=== PATIENT | female | born 1975 | race Caucasian/White ===

== ENCOUNTER → 2017-11-12 | Outpatient (CLI) | payer BC ==
[2017-11-12 12:33] LABS: Basophils # (A) 0.1 k/uL (0-0.2); Basophils % (A) 1 %; Eosinophils # (A) 0.2 k/uL (0-0.7); Eosinophils % (A) 3 %; HCT 45.1 % (34.0-46.0); HGB 14.3 gm/dL (11.4-16.0); Lymphocytes # (A) 2.5 k/uL (1.0-4.8); Lymphocytes % (A) 31 %; MCH 29.2 pg (25.0-35.0); MCHC 31.7 g/dL (31.0-37.0); MCV 92.1 fL (80.0-100.0); Mean Platelet Volume 7.9; Monocytes # (A) 0.3 k/uL (0-1.0); Monocytes % (A) 4 %; Neutrophils # (A) 4.8 k/uL (1.3-7.7); Neutrophils % (A) 59 %; Platelet Count 322 k/uL (150-450); RBC 4.89 m/uL (3.80-5.40); RDW 13.6 % (11.5-15.5); WBC 8.1 k/uL (3.8-10.6)
[2017-11-12 12:54] LABS: Anion Gap 10 mmol/L; Blood Urea Nitrogen 12 mg/dL (7-17); Carbon Dioxide 25 mmol/L (22-30); Chloride 104 mmol/L (98-107); Glucose 90 mg/dL (74-99); Potassium 4.6 mmol/L (3.5-5.1); Sodium 139 mmol/L (137-145)
== END | disposition home or self-care (01) ==
LOC: LABPAT 11:44
PROVIDERS: ATTEND Obstetrics & Gynecology
DX: Z01.812 Encounter for preprocedural laboratory examination (principal); N92.0 Excessive and frequent menstruation with regular cycle; D21.9 Benign neoplasm of connective and other soft tissue, unspecified
CPT/HCPCS: 36415; 80051; 82565; 82947; 84520; 85025; 86850; 86900; 86901; 87086

== ENCOUNTER 2017-11-20 06:00 | Day surgery (SDC) | payer BC, OTHER ==
[2017-11-12 09:27] VITALS: BMI 34.5
--- NOTE | 2017-11-19 12:50 | HP ---
HISTORY AND PHYSICAL Surgery on 11/20/2017. HISTORY OF PRESENT ILLNESS: The patient is a 42-year-old 1, para 1-0-0-1, who presented on referral for evaluation for menorrhagia. She had significantly heavy bleeding, which remains on a monthly basis, but is lasting 7 days. She has had anemia in the past and continues to be iron deficient as result of her bleeding. She is interested in options for controlling the bleeding. She is a smoker and is not using any contraception consistently. She ultimately underwent a pelvic ultrasound which demonstrated a slightly enlarged uterus with one fibroid noted. Her physical exam was consistent with those findings as well. Additionally, endometrial biopsy performed was normal. After discussion of all of the potential options, the patient has requested definitive therapy with hysterectomy. Her examination bears out so that she is only a candidate for open or da Socrates approach. As a result, we will proceed with da Socrates hysterectomy. PAST MEDICAL HISTORY: Past medical history is significant for anemia. She additionally carries a history of anxiety and depression in the past. She has high cholesterol and hypothyroidism rather. Additionally carries a history of lupus as well as some stomach problems, possibly consistent with ulcer. SURGICAL HISTORY: She has had her tonsils and adenoids out in 1983. She had a section in 1994. She had bilateral breast reduction in 2006. She has had a cholecystectomy in 2009. She additionally underwent a left knee surgery in the past and had tubes in her ears as a child. She denies any anesthetic concerns. OBSTETRICAL HISTORY: 1, para 1-0-0-1 with 1 term section without complications. Current method of contraception is condoms inconsistently. GYNECOLOGIC HISTORY: Gynecologic history is unremarkable with no history of any infections to include STDs in the recent past. FAMILY HISTORY: Noncontributory. SOCIAL HISTORY: The patient is and is a 1-1/2 pack per day smoker. She reports occasional alcohol and no other social concerns. MEDICATIONS: Current medications include; 1. Aspirin 81 mg daily. 2. Cymbalta 60 mg daily. 3. Ditropan XL 5 mg daily. 4. Iron sulfate 325 mg daily. 5. Lopid 600 mg daily. 6. Prevacid 20 mg daily. 7. Daily probiotics. 8. Savella 50 mg daily. 9. Synthroid 25 mcg daily. 10.Trazodone 50 mg daily. 11.Vitamin D 5000 units daily. 12.Xanax 0.5 mg t.i.d. p.r.n. ALLERGIES: Allergies to to CLINDAMYCIN, IODINE. PENICILLINS and KEFLEX have both caused nausea, itching, rash, and headaches. REVIEW OF SYSTEMS: Review of systems is confined to history of present illness. PHYSICAL EXAMINATION: In general, this is a well-developed, well-nourished white female in no acute distress. Her heart has a regular rhythm and rate without murmur. Her lungs are clear to auscultation bilaterally in all kessler. Her back is without spinal or CVA tenderness. Her abdomen is nondistended, has normal bowel sounds, is soft, nontender, without any palpable masses, hepatosplenomegaly, or hernias. Her extremities are without any cyanosis, clubbing, or edema and are nontender to palpation bilaterally. Pelvic examination demonstrates normal external genitalia and BUS with normal vaginal mucosa and cervix. There is no cervical motion tenderness. The uterus is approximately 6 weeks in size, acutely anteverted, mobile, nontender, and essentially normal in shape. The adnexa are normal and nontender without mass bilaterally. ASSESSMENT AND PLAN: Menorrhagia with anemia: We discussed multiple different options ranging from Lysteda to hormonal intervention, which would also provide contraception to surgical interventions including endometrial ablation versus hysterectomy. The patient has requested definitive therapy with hysterectomy and her examination bears out that she is a candidate for a da Socrates robotic approach. As a result, she will undergo da Socrates robotically assisted laparoscopic hysterectomy with bilateral salpingectomy and diagnostic cystoscopy. The risks and complications of these procedures have been thoroughly discussed including the risks for bleeding, bleeding requiring transfusion, infection, and injury to local structures. These specifically include the risks for bowel, bladder, and ureters. I specifically pointed out with her history of section the potential risks to the bladder. I then went on to discuss the specific injuries that are unique to da Socrates surgery to include thermal injury as well as vaginal cuff dehiscence. She has understood all this and has agreed to proceed. We are scheduled for the above procedure on the morning of November 20, 2017. Dictation done on November 19 for surgery on November 20, 2017. MMODL / IJN: [id number] /
[~2017-11-20 06:00] MED LIST: CLINDAMYCIN 900 MG in DEXTROSE 5% IN WATER 50 ML IVPB ONE; DEXAMETHASONE SOD PHOSPHATE 10 MG/ML 1 ML VIAL IV ONE; GENTAMICIN 320 MG in SODIUM CHLORIDE 0.9% 100 ML IVPB ONE; MIDAZOLAM 2 MG/2 ML VIAL IV PRN; MORPHINE SULFATE 4 MG/ML SYRINGE IV PRN; ONDANSETRON 4 MG/2 ML VIAL IVP ONE; SCOPOLAMINE 1.5MG/72HR PATCH TRANSDERM ONE; ceFAZolin IN SWFI 2 GM/20 ML SYRINGE IVP ONE
[2017-11-20] MEDS: LACTATED RINGERS 1,000 ML IV SCH ×2 (06:11→13:59)
[2017-11-20] MEDS ORDERED: LIDOCAINE 1% 20 ML VIAL (10MG/ML) FOR IV START INTRADERMA ONE (06:29)
[2017-11-20] MEDS ORDERED: BUPIVACAINE (PF) 0.5% 30 ML VIAL SQ ONE (07:29)
[2017-11-20] MEDS ORDERED: KETOROLAC 30 MG/ML 1 ML VIAL ONE (07:33)
[2017-11-20] MEDS ORDERED: SUCCINYLCHOLINE CHLORIDE 100 MG/5 ML SYR IV ONE (07:33)
[2017-11-20] MEDS ORDERED: fentaNYL (PF) 50 MCG/ML 2 ML AMP ONE (07:33)
[2017-11-20] MEDS ORDERED: NEOSTIGMINE 1 MG/ML 10 ML VIAL ONE (07:33)
[2017-11-20] MEDS ORDERED: GLYCOPYRROLATE 0.2 MG/ML 2 ML VIAL ONE (07:33)
[2017-11-20] MEDS ORDERED: ROCURONIUM BROMIDE 10 MG/ML 10 ML VIAL IV ONE (07:33)
[2017-11-20] MEDS ORDERED: MIDAZOLAM 2 MG/2 ML VIAL ONE (07:33)
[2017-11-20] MEDS ORDERED: PROPOFOL 10 MG/ML 20 ML VIAL IV ONE (07:33)
[2017-11-20] MEDS ORDERED: LIDOCAINE 1% INJ 10MG/ML (20 ML MDV) ONE (07:33)
[2017-11-20] MEDS ORDERED: METOCLOPRAMIDE 5 MG/ML 2 ML VIAL IVP PRN (09:29)
[2017-11-20] MEDS ORDERED: Acetaminophen-Codeine 300-30mg TAB PO PRN (09:29)
[2017-11-20] MEDS ORDERED: ONDANSETRON 4 MG/2 ML VIAL IVP PRN (09:29)
[2017-11-20] MEDS ORDERED: SIMETHICONE 80 MG CHEWABLE PO PRN (09:29)
[2017-11-20] MEDS ORDERED: IBUPROFEN 600 MG TAB PO PRN (09:29)
[2017-11-20] MEDS ORDERED: diphenhydrAMINE 50 MG/ML 1 ML VIAL IVP PRN (09:29)
--- NOTE | 2017-11-20 09:41 | P.OP ---
Date of Procedure: 11/20/17 Preoperative Diagnosis: #1. Menorrhagia 2. Uterine fibroids #3. Anemia Postoperative Diagnosis: Same Procedure(s) Performed: #1. Da Socrates robotically assisted laparoscopic hysterectomy with bilateral salpingectomy #2. Diagnostic cystoscopy Anesthesia: ABBY Surgeon: Nasir Gonzalez Client Development Consultant #1: Saida Putnam Estimated Blood Loss (ml): 300 IV fluids (ml): 1,000 Urine output (ml): 100 Pathology: other (Uterus and bilateral fallopian tubes) Condition: stable Disposition: PACU Operative Findings: Preoperative pelvic examination demonstrated a roughly 5 week anteverted mobile normal shaped uterus with normal adnexa bilaterally. Intraoperatively, these findings were confirmed with a normal uterus, tubes, and ovaries. She did have some tethering of the ovaries and an appearance consistent with polycystic ovarian syndrome. There was no evidence of endometriosis in the pelvis or anywhere else in the remainder the findings were also normal and benign. Following the procedure the dome of the bladder appeared entirely normal both cystoscopically and laparoscopically. Bilateral ureteral jets were noted. Description of Procedure: The patient was prepped and draped in usual fashion after general endotracheal anesthesia was administered by the anesthesiologist. A care uterine manipulator was placed without difficulty. A Carias catheter was placed as well. Attention was then turned to the abdomen where a site was selected approximately 2 cm above the umbilicus where an 8 mm incision was made in the transverse plane allowing insertion of a 5 mm optical trocar under direct visualization without difficulty. A pneumoperitoneum was created. A site was selected in the left lower quadrant approximately 12 cm lateral and 5 cm inferior to the optical port where a 8 mm incision was made in the transverse plane allowing insertion of an 8 mm da Socrates trocar under direct visualization without difficulty the distance between the 2 ports was then halved and a site selected approximately 3 cm above the optical port where a 10 mm incision was made in the transverse plane allowing insertion of a 10 mm assistant professor of business port under direct visualization without difficulty. The left lower quadrant port was then made in the right lower quadrant. The scope was switched to a lateral port and the optical trocar removed in favor of an 8 mm da Socrates trocar each was inserted under direct visualization without difficulty. The robot was docked to the patient's and attention turned to the console. The left fallopian tube was dissected from the underlying ovary and taken down through the round ligament and utero-ovarian ligament using bipolar cautery with the [place] forceps followed by a monopolar cutting scissors. The bladder peritoneum was then dissected to the midline sharply. Uterine vasculature was skeletonized to some extent and then cauterized with the [place] bipolar cautery forceps. Attention was turned to the right side where similar operations were carried out without difficulty. There was some difficulty with uterine manipulation but ultimately we're able to isolate the uterine vasculature on this side as well allowing it to be cauterized and cut sharply. The bladder peritoneum was further dissected distally along the bladder pillars to follow a. Once the bladder was adequately dissected and uterine vasculature Should on each side with cautery. The posterior vaginal cuff was opened sharply with the monopolar cautery scissors. Dissection was carried around bilaterally and ultimately connected freeing the uterus from the patient. During dissection on the patient 's right side, a fairly significant point of bleeding was encountered which was ultimately controlled with cautery. The uterus was then removed into the vagina and the monopolar cautery scissors replaced with a laparoscopic suturing device. An 0 V lock suture was passed into the abdomen and the vaginal cuff sutured from margin to margin in standard fashion without difficulty. The stitch was then removed from the abdomen. Suction irrigation was carried out and hemostasis was was excellent. I then returned to the patient where the Carias catheter was removed and a diagnostic cystoscope placed into the bladder. The bladder was then distended with normal saline and the dome of the bladder examined both from the cystoscopic and laparoscopic perspective and appeared intact in both cases. The ureteral Herlitz were then examined using the cystoscope and the bilateral ureteral jets noted. All instrumentation was then removed and the Carias replaced. The robot was undocked and the incision closed with interrupted subcuticular stitches of 4-0 Vicryl followed by half-inch Steri -Strips. Each incision was infused equally with half percent Marcaine without epinephrine using a total of 10 mL. Estimated blood loss for the case is roughly 300 mL, the majority which was lost at the vaginal cuff bleeding. There were no complications. All sponge, straight, and needle counts were correct. The patient tolerated the procedure well and proceeded to the recovery room in stable condition.
[2017-11-20] MEDS: MEPERIDINE 50 MG/ML SYRINGE IVP ONE ×2 (10:20→10:35)
[2017-11-20] MEDS: KETOROLAC 30 MG/ML 1 ML VIAL IVP PRN (15:52)
[2017-11-20] MEDS: NICOTINE 14MG/24HR PATCH TRANSDERM SCH (15:54)
[2017-11-20] MEDS: Acetaminophen-Codeine 300-30mg TAB PO PRN (19:34)
[2017-11-20] MEDS: SENNOSIDES-DOCUSATE SODIUM 1 EACH TAB PO SCH (21:00)
[2017-11-21] MEDS: Acetaminophen-Codeine 300-30mg TAB PO PRN (03:39)
[2017-11-21] MEDS: LACTATED RINGERS 1,000 ML IV SCH ×2 (07:54→07:55)
[2017-11-21] MEDS: KETOROLAC 30 MG/ML 1 ML VIAL IVP PRN (08:22)
--- NOTE | 2017-11-21 08:24 | P.DS ---
Providers Expected date of discharge: 11/21/17 Attending physician: Nasir Gonzalez Primary care physician: Stated None - Discharge Diagnosis(es) (1) Fibroid uterus Current Visit: Yes Status: Acute (2) Menorrhagia Current Visit: Yes Status: Acute Hospital Course: The patient is a 42-year-old 1 para [id number] presented to the office initially with complaints of significant menorrhagia leading to subsequent anemia. She was requesting options for treatment. After long discussion regarding her different potential options and documentation of essentially normal anatomy with one small fibroid noted as well as a benign endometrial biopsy, the patient chose to proceed with definitive therapy. Her examination before out that she was only a candidate for either open or da Socrates approach. As result, she chose da Socrates robotically assisted laparoscopic hysterectomy with bilateral salpingectomy and diagnostic cystoscopy. Procedure was entirely uncomplicated as was her postoperative course. Her vital signs were stable and her temperature was afebrile throughout. She was deemed stable for discharge on post operative day #1 was discharged home to follow-up in the office in 2 weeks for incision checks and 8 weeks routinely. Discharge instructions included calling for any significantly increased bleeding, fever, GI complaints , urinary complaints, incisional complaints, or anything else that concerned her. She was additionally instructed to have nothing in the vagina for at least 8 weeks time to include intercourse. She understood her instructions and agrees to follow up as noted above. Discharge medications included any home medications as well as a prescription for Tylenol #3, 1-2 by mouth every 6 hours when necessary pain, #30 dispensed with no refills. She was otherwise to alternate this with [id number] analgesics. Discharge hemoglobin and hematocrit were pending at the time of this dictation. Plan - Discharge Summary Discharge Rx Participant: Yes New Discharge Prescriptions: No Action DULoxetine HCL [Cymbalta] 60 mg PO DAILY ALPRAZolam [Xanax] 0.5 mg PO DAILY PRN PRN Reason: Anxiety traZODone HCL [Desyrel] 50 mg PO HS Levothyroxine Sodium [Synthroid] 25 mcg PO DAILY Gemfibrozil [Lopid] 600 mg PO AC-BID Oxybutynin Chloride [Ditropan] 5 mg PO BID Milnacipran HCl [Savella] 50 mg PO BID Discharge Medication List ALPRAZolam [Xanax] 0.5 mg PO DAILY PRN 11/12/17 [History] DULoxetine HCL [Cymbalta] 60 mg PO DAILY 11/12/17 [History] Gemfibrozil [Lopid] 600 mg PO AC-BID 11/12/17 [History] Levothyroxine Sodium [Synthroid] 25 mcg PO DAILY 11/12/17 [History] Milnacipran HCl [Savella] 50 mg PO BID 11/12/17 [History] Oxybutynin Chloride [Ditropan] 5 mg PO BID 11/12/17 [History] traZODone HCL [Desyrel] 50 mg PO HS 11/12/17 [History] Follow up Appointment(s)/Referral(s): Nasir Gonzalez MD [STAFF PHYSICIAN] - 2 Weeks Discharge Disposition: HOME SELF-CARE
[2017-11-21 08:32] LABS: Basophils % (A) 0 %; Eosinophils # (A) 0.2 k/uL (0-0.7); Eosinophils % (A) 2 %; HCT 33.9 % (34.0-46.0); HGB 11.4 gm/dL (11.4-16.0); Lymphocytes # (A) 2.2 k/uL (1.0-4.8); Lymphocytes % (A) 20 %; MCH 30.3 pg (25.0-35.0); MCHC 33.8 g/dL (31.0-37.0); MCV 89.8 fL (80.0-100.0); Mean Platelet Volume 7.7; Monocytes # (A) 0.3 k/uL (0-1.0); Monocytes % (A) 3 %; Neutrophils # (A) 8.2 k/uL (1.3-7.7); Neutrophils % (A) 75 %; Platelet Count 296 k/uL (150-450); RBC 3.77 m/uL (3.80-5.40); RDW 13.5 % (11.5-15.5)
[2017-11-21] MEDS: NICOTINE 14MG/24HR PATCH TRANSDERM SCH (09:34)
[2017-11-21 09:39] VITALS: BP 110/66; PULSE 98; RESP 16; TEMP 98.7
[2017-11-21] MEDS: SENNOSIDES-DOCUSATE SODIUM 1 EACH TAB PO SCH (14:53)
== END 2017-11-21 13:25 | disposition home or self-care (01) ==
LOC: OR 06:00 → 4FBP 09:40 → OR 11-21 13:25
PROVIDERS: ATTEND Obstetrics & Gynecology
DX: D25.9 Leiomyoma of uterus, unspecified (principal); D50.0 Iron deficiency anemia secondary to blood loss (chronic); N80.2 Endometriosis of fallopian tube; N83.8 Other noninflammatory disorders of ovary, fallopian tube and broad ligament; N80.0 Endometriosis of uterus; E03.9 Hypothyroidism, unspecified; E78.00 Pure hypercholesterolemia, unspecified; M79.7 Fibromyalgia; F17.210 Nicotine dependence, cigarettes, uncomplicated; F32.9 Major depressive disorder, single episode, unspecified; F41.9 Anxiety disorder, unspecified; M32.9 Systemic lupus erythematosus, unspecified; Z79.82 Long term (current) use of aspirin; Z88.1 Allergy status to other antibiotic agents; Z88.0 Allergy status to penicillin; Z91.048 Other nonmedicinal substance allergy status; Z79.899 Other long term (current) drug therapy; Z90.49 Acquired absence of other specified parts of digestive tract
CPT/HCPCS: 81025; 86900; 86901; 85025; 86850; 88307; 58571; S4990; J2250; J2270; J1100; J2710; J2175; J2405; J2001; J3010; J1885 ×2; J1580; J0330; J2704

== ENCOUNTER → 2018-10-03 | Outpatient (CLI) | payer BC ==
[2018-10-03 17:54] LABS: LDL Cholesterol,Calculated 135.2 mg/dL (0.0-131.0); VLDL Calculation 49.8 mg/dL (5.00-40.00)
== END | disposition home or self-care (01) ==
LOC: LABWHC1 09:59
PROVIDERS: ATTEND Internal Medicine Interventional Cardiology
DX: Z01.812 Encounter for preprocedural laboratory examination (principal); E78.2 Mixed hyperlipidemia
CPT/HCPCS: 36415; 80061

== ENCOUNTER → 2018-10-03 | Outpatient (CLI) | payer BC ==
[2018-10-03 10:34] LABS: ALT 35 U/L (9-52); AST 24 U/L (14-36); Albumin 4.6 g/dL (3.5-5.0); Alkaline Phosphatase 59 U/L (38-126); Anion Gap 9 mmol/L; Blood Urea Nitrogen 16 mg/dL (7-17); Calcium 10.1 mg/dL (8.4-10.2); Carbon Dioxide 27 mmol/L (22-30); Chloride 103 mmol/L (98-107); Glucose 92 mg/dL (74-99); Potassium 4.1 mmol/L (3.5-5.1); Sodium 139 mmol/L (137-145); Total Bilirubin 0.5 mg/dL (0.2-1.3); Total Protein 7.6 g/dL (6.3-8.2)
[2018-10-03 10:39] LABS: HGB 15.4 gm/dL (11.4-16.0); MCH 32.2 pg (25.0-35.0); MCHC 33.5 g/dL (31.0-37.0); Mean Platelet Volume 8.2; Platelet Count 363 k/uL (150-450); RBC 4.79 m/uL (3.80-5.40); RDW 13.7 % (11.5-15.5); WBC 8.3 k/uL (3.8-10.6)
== END ==
LOC: LABWHC1 09:30
PROVIDERS: ATTEND Internal Medicine Interventional Cardiology
DX: Z01.818 Encounter for other preprocedural examination (principal); Z01.812 Encounter for preprocedural laboratory examination; E78.2 Mixed hyperlipidemia; I10 Essential (primary) hypertension; R94.39 Abnormal result of other cardiovascular function study; R07.9 Chest pain, unspecified
CPT/HCPCS: 80053; 85027

== ENCOUNTER → 2018-10-08 | Day surgery (SDC) | payer BC ==
[2018-10-07 10:15] VITALS: BMI 37.1
[~2018-10-08] MED LIST changes: +ACETAMINOPHEN TAB 325 MG TAB ONE; +ACETAMINOPHEN TAB 325 MG TAB PO PRN; +ALPRAZolam 0.25 MG TAB PO PRN; +ALPRAZolam 0.5 MG TAB PO PRN; +ASPIRIN 325 MG TAB PO STA; -CLINDAMYCIN 900 MG in DEXTROSE 5% IN WATER 50 ML IVPB ONE; +CYCLOBENZAPRINE 10 MG TAB PO PRN; -DEXAMETHASONE SOD PHOSPHATE 10 MG/ML 1 ML VIAL IV ONE; +DULoxetine HCL 60 MG CAPSULE.DR PO SCH; +ERGOCALCIFEROL 50,000 UNIT CAP PO SCH; +FLUTICASONE 50MCG/SPRAY NASAL 16GM EA NOSTRIL PRN; +GEMFIBROZIL 600 MG PO SCH; -GENTAMICIN 320 MG in SODIUM CHLORIDE 0.9% 100 ML IVPB ONE; +HEPARIN SODIUM 1,000 UN/ML (10ML VL) IV ONE; +HEPARIN SODIUM 1,000 UN/ML (10ML VL) ONE; +HYDROCHLOROTHIAZIDE 25 MG TAB PO SCH; +IOPAMIDOL-370 125ML BTL INJ ONE; +ISOSORBIDE MONONITRATE ER 30 MG TAB.ER.24H PO SCH; +LEVOTHYROXINE 25 MCG TAB PO SCH; +LIDOCAINE 1% INJ 10MG/ML (20 ML MDV) SQ ONE; +LISINOPRIL 10 MG TAB PO SCH; +MIDAZOLAM 2 MG/2 ML VIAL IV ONE; -MIDAZOLAM 2 MG/2 ML VIAL IV PRN; +MILNACIPRAN HCL 50 MG PO SCH; -MORPHINE SULFATE 4 MG/ML SYRINGE IV PRN; -ONDANSETRON 4 MG/2 ML VIAL IVP ONE; +OXYBUTYNIN CHLORIDE 5 MG TAB PO SCH; +RX INFO: IV CONTRAST WAS GIVEN 1 EACH MISC MISCELLANE PRN; -SCOPOLAMINE 1.5MG/72HR PATCH TRANSDERM ONE; +SODIUM CHLORIDE 0.9% 1,000 ML IV SCH; +SODIUM CHLORIDE 0.9% 1,000 ML in EMPTY BAG 1 BAG IV ONE; +VERAPAMIL SYRINGE (5 MG/10 ML) INTRAARTER ONE; -ceFAZolin IN SWFI 2 GM/20 ML SYRINGE IVP ONE; +fentaNYL (PF) 50 MCG/ML 2 ML AMP IV ONE; +fentaNYL (PF) 50 MCG/ML 2 ML AMP ONE; +traZODone HCL 50 MG TAB PO SCH
[2018-10-08 11:36] VITALS: RESP 18; TEMP 97.7
--- NOTE | 2018-10-08 13:02 | CC ---
CARDIAC CATHETERIZATION REPORT Ms. Lowery is a 43-year-old female with known history of hypertension, hyperlipidemia, chronic tobacco use and a family history of premature coronary artery disease who has been complaining of exertional chest discomfort. She underwent a stress test when she had chest discomfort and EKG changes with low exercise tolerance. In view of that, recommendation made regarding cardiac catheterization. The procedures, risks and complications were discussed with the patient who is in full understanding and agreement. PROCEDURE: Patient was brought to the film laboratory technician in a fasting semi-sedated state after receiving fentanyl and Benadryl and achieving moderate conscious sedated state. Using Xylocaine anesthesia and Seldinger technique, a 6-Iranian sheath was introduced in the right radial artery. Selective right and left angiography was performed using 5-Iranian, 3.5 bend right and left Jacqueline catheter, multiple views of coronary artery including hemiaxial views obtained. Following that 5-Iranian tight pigtail catheter was introduced in the left ventricle and a 30 degree CARTER view of the left ventricle was obtained. Following that, catheter and sheaths were removed. Hemostasis was obtained with deployment of a TR band. There was no immediate complication. Patient is returned to room in stable condition. Of note, the patient received 5000 units of intravenous heparin as well as intra-arterial verapamil. FINDINGS: LEFT MAIN: This is a large-sized vessel, bifurcating into left circumflex, left anterior descending artery, left main coronary artery has no evidence of high-grade stenosis. LEFT ANTERIOR DESCENDING ARTERY: This is a large-sized vessel, reaching toward the apex with a wraparound apex segment. The left anterior descending artery as well as branches have no evidence of obstructive coronary artery disease. LEFT CIRCUMFLEX: This is a nondominant vessel, giving rise to 2 diagonal branches. The second one is large in caliber. The left circumflex as well as branches have no evidence of obstructive coronary artery disease. RIGHT CORONARY ARTERY: This is a dominant vessel, large in caliber, giving rise to a PDA and a PLV distally. The right coronary artery, as well as branches have no evidence of obstructive coronary artery disease. LEFT VENTRICULOGRAM: Left ventriculogram was performed in 30 degree CARTER view and revealed normal left ventricular size and systolic function. Ejection fraction is above 60%. There was no significant mitral regurgitation. HEMODYNAMICS: There was no gradient across the aortic valve. The left ventricular end- diastolic pressure was 8 mmHg. CONCLUSION: 1. Normal coronary arteries. 2. Normal left ventricular size and systolic function. RECOMMENDATION: In view of finding anatomy and the anatomy, I recommend continue medical therapy with aggressive coronary risk modifications being initiated. Those findings and recommendation were discussed with the patient and her family and they are in full understanding and agreement. Duration of procedure is 17 minutes. JD / LUCI: [id number] /
[2018-10-08 16:01] VITALS: PULSE 90
[2018-10-08 17:08] VITALS: BP 104/61
== END | disposition home or self-care (01) ==
LOC: CATHCVL 10:48
PROVIDERS: ATTEND Internal Medicine Interventional Cardiology
DX: R07.89 Other chest pain (principal); R94.39 Abnormal result of other cardiovascular function study; I10 Essential (primary) hypertension; E78.2 Mixed hyperlipidemia; F17.210 Nicotine dependence, cigarettes, uncomplicated; Z79.899 Other long term (current) drug therapy; Z79.82 Long term (current) use of aspirin; Z79.890 Hormone replacement therapy; Z88.0 Allergy status to penicillin; Z82.49 Family history of ischemic heart disease and other diseases of the circulatory system
CPT/HCPCS: 93458; 81025; C1894; C1769; J2250; J2001; J3010; J1644; Q9967

== ENCOUNTER → 2019-06-16 | Outpatient (CLI) | payer BC ==
--- NOTE | 2019-06-16 22:37 | MR ---
EXAMINATION TYPE: MR brain wo con DATE OF EXAM: 06/16/2019 COMPARISON: CT brain November 12, 2010. HISTORY: Muscle weakness, Memory loss TECHNIQUE: Multiplanar, multisequence imaging of the brain and brainstem is performed without IV cont rast. FINDINGS: Diffusion weighted images demonstrate no evidence of a recent infarct or other diffusion abnormality. There is no worrisome extra-axial fluid collection . Mild ventricular and sulcal prominence over bila teral frontal lobes. There is rare tiny T2 hyperintense lesions throughout the white matter for refer ence single 2 mm left frontal lesion axial image 17 is noted. Midline structures demonstrate somewhat empty sella morphology. The craniocervical junction appears within normal limits. Normal vascular flow voids are present. Dependent fluid in the sphenoid sinuses is thought present.. Some patchy increased fluid bilateral inferior mastoid air cells. Globes are in tact bilaterally. IMPRESSION: Mild bilateral frontal lobe atrophy with minimal nonspecific white matter changes. Suspec t sphenoid sinusitis, correlate clinically.
== END | disposition home or self-care (01) ==
LOC: RADMRIMAIN 17:24
PROVIDERS: ATTEND Psychiatry & Neurology Neurology
DX: G31.9 Degenerative disease of nervous system, unspecified (principal)
CPT/HCPCS: 70551

== ENCOUNTER → 2019-07-14 | Outpatient (CLI) | payer BC | END | disposition home or self-care (01) | LOC: LABWHC1 17:09 | PROVIDERS: ATTEND Psychiatry & Neurology Neurology | DX: M62.81 Muscle weakness (generalized) (principal) | CPT/HCPCS: 36415; 82550; 82607; 85652 ==

== ENCOUNTER → 2019-08-19 | Outpatient (CLI) | payer BC ==
[2019-08-19 16:20] LABS: Amorphous Sediment,Urine Many /hpf; Appearance,Urine Cloudy (Clear); Bacteria,Urine Occasional /hpf; Bilirubin,Urine Negative (Negative); Blood,Urine Negative (Negative); Color,Urine Yellow; Glucose,Urine (UA) Negative (Negative); Ketones,Urine Negative (Negative); Leukocyte Esterase,Urine Negative (Negative); Mucus,Urine Rare /hpf; Nitrite,Urine Negative (Negative); Protein,Urine Negative (Negative); Specific Gravity,Urine 1.018 (1.001-1.035); Squamous Epithelial Cell,Urine 3 /hpf (0-4); Urobilinogen,Urine <2.0 mg/dL (<2.0)
[2019-08-20 01:32] LABS: Hemoglobin A1C 5.7 % (4.0-6.0)
[2019-08-20 02:13] LABS: Bilirubin, Conjugated <0.20 mg/dL (0.20-0.40); Total Bilirubin 0.4 mg/dL (0.3-1.2)
== END | disposition home or self-care (01) ==
LOC: LABWHC1 15:03
PROVIDERS: ATTEND Psychiatry & Neurology Neurology
DX: R41.3 Other amnesia (principal); Z13.6 Encounter for screening for cardiovascular disorders; Z13.21 Encounter for screening for nutritional disorder
CPT/HCPCS: 36415; 81001; 82248; 82306; 83036; 83090; 83921

== ENCOUNTER → 2019-08-21 | Outpatient (CLI) | payer BC ==
[2019-08-21 20:15] LABS: Chol/HDL Ratio 4.81; LDL Cholesterol,Calculated 140.2 mg/dL (0.0-131.0); VLDL Calculation 42.8 mg/dL (5.00-40.00)
== END | disposition home or self-care (01) ==
LOC: LABWHC1 13:55
PROVIDERS: ATTEND Psychiatry & Neurology Neurology
DX: R41.3 Other amnesia (principal); Z13.6 Encounter for screening for cardiovascular disorders
CPT/HCPCS: 36415; 80061

== ENCOUNTER → 2023-09-29 | Outpatient (CLI) | payer BC ==
--- NOTE | 2023-09-30 20:38 | MR ---
EXAMINATION TYPE: MR abdomen wo/w con DATE OF EXAM: 09/29/2023 3:48 PM CLINICAL INDICATION:Female, 48 years old with history of R16.0 HEPATOMEGALY; Hepatomegaly, abnormal C T. COMPARISON: None TECHNIQUE: Multiplanar multi-sequence imaging was performed without contrast. Post contrast imaging was performed. Post IV contrast subtraction images were also submitted for review. IV Contrast: 11 cc Gadavist FINDINGS: LOWER CHEST: Right lower lobe 7 mm high T2 signal suggestive of pulmonary nodule. ABDOMEN Liver: Respiratory motion limits evaluation near the diaphragm. Diffuse signal dropout on chemical sh ift of phase imaging which is severe compatible with hepatic steatosis. Scattered high T2 signal lesi ons are seen throughout the liver parenchyma which progressively enhance on delayed imaging. The left hepatic lobe extends towards the left lateral aspect of the abdomen. Gallbladder and Bile ducts: No evidence for ductal dilation, or biliary stricture or evidence of chol edocholithiasis. The gallbladder appears surgically absent. Pancreas: No ductal dilation. No evidence for solid mass. Spleen: Normal for size. Adrenal glands: Left 17 mm adrenal nodule with some signal dropout on chemical shift in phase imaging . The right jugular gland is unremarkable. Kidneys: No evidence for obstructive uropathy. No suspicious renal masses. Stomach and Bowel: No evidence for bowel wall thickening or evidence for obstruction.. Peritoneum: No evidence of pneumoperitoneum or free fluid. Vasculature: No aortic aneurysm. Musculoskeletal: The osseous structures appear intact. Lymph Nodes: No gross evidence for lymphadenopathy. Abdominal wall: Fat-containing umbilical hernia. IMPRESSION: 1. Hepatomegaly with marked Hepatic steatosis. 2. Scattered hepatic observations with benign enhancement characteristics. Findings favored represen t hemangioma. There is respiratory motion which limits evaluation of some of these lesions on postcon trast imaging. 3. Left adrenal nodule most compatible with lipid rich adrenal adenoma. 4. Right lower lobe 7 mm pulmonary nodule. Complete evaluation with CT chest recommended.
== END | disposition home or self-care (01) ==
LOC: RADMRIMAIN 14:30
PROVIDERS: ATTEND Family Medicine
DX: K76.0 Fatty (change of) liver, not elsewhere classified (principal); R16.0 Hepatomegaly, not elsewhere classified; R91.1 Solitary pulmonary nodule; E27.8 Other specified disorders of adrenal gland
CPT/HCPCS: 74183; A9585